=== PATIENT | male | born 2005 | race Caucasian/White ===

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

== ENCOUNTER 2025-05-09 10:40 | Emergency (ER) | payer SELFPAY ==
--- NOTE | ~2025-05-09 | XR_ITS ---
HISTORY: pain and swelling, trampoline injury COMPARISON: None TECHNIQUE: 3 views of the right ankle were performed FINDINGS: No acute fracture or dislocation. Significant anterolateral soft tissue swelling. The ankle mortise is preserved. Bone mineralization is age-appropriate. IMPRESSION: Anterolateral soft tissue swelling, without acute fracture. Reviewed, dictated and finalized at location A.
[2025-05-09 10:55] VITALS: BP 159/71; PULSE 91; RESP 20; TEMP 37.3; O2SAT 100
--- NOTE | 2025-05-09 11:08 | ED_ITS ---
HPI - Extremity Injury (Lower) General Chief Complaint: Extremity Injury, Lower Stated Complaint: Right Ankle Pain Time Seen by Provider: 05/09/25 11:08 Source: patient Mode of arrival: ambulatory Limitations: no limitations History of Present Illness HPI Narrative: 19-year-old male presents with complaint of pain to right ankle. Last night patient was jumping on trampoline, did a front flip and landed on both feet and then felt pain and pop to right ankle causing him to fall. Pain when bearing weight. States that right ankle feels stiff. Neurovascularly intact. Walking with a limp. All systems reviewed and negative except as noted above. Related Data Home Medications ?Medication ?Instructions ?Recorded ?Confirmed ?Last Taken ?Type No Home Medications 05/09/25 05/09/25 Unknown History Allergies Allergy/AdvReac Type Severity Reaction Status Date / Time No Known Allergies Allergy Mild Verified 05/09/25 11:19 Review of Systems Review of Systems: CONSTITUTIONAL: Denies fever, chills, or sweats. EYES: Denies visual changes, redness, or discharge. ENT: Denies rhinorrhea, congestion, sore throat, or otalgia. CARDIOVASCULAR: Denies chest pain, palpitations, or edema. RESPIRATORY: Denies cough or dyspnea. GASTROINTESTINAL: Denies abdominal pain, nausea, vomiting, or diarrhea. GENITOURINARY: Denies dysuria or hematuria. SKIN: Denies rash or itching. MUSCULOSKELETAL: Reports pain and swelling to right ankle NEUROLOGIC: Denies headache, numbness, or weakness. PSYCHIATRIC: Denies anxiety or depression. All other systems reviewed are negative, except as documented in HPI. [facility] Past Medical History Medical History BMI 34.0-34.9,adult Lactose intolerance Family History Family History Father COVID-19 Mother COVID-19 Sibling COVID-19 Other Breast cancer Diabetes mellitus Hypertension Social History Social History Smoking status: Never smoker Second hand tobacco smoke exposure: No Alcohol intake: never Substance use: never Substance use type: does not use Living arrangements: with family Occupation/Education: student Additional occupation/education comments: 11th grade [employer]. Works at [employer]. Gender identity (if verbalized by the patient): Male Comments At time of signature, agree with nursing past medical, surgical, social and family history. There is no relevant family history pertinent to the presenting complaint. Exam Narrative: GENERAL: This is a well-nourished, well-developed patient, in no apparent distress. HEAD: normocephalic, atraumatic. EYES: PERRL. Sclera clear/white. Vision is grossly intact. EARS: External ears normal NOSE: External nose normal NECK: Neck supple, non-tender without lymphadenopathy, masses or thyromegaly. CARDIOVASCULAR: Regular rate and rhythm without murmurs, gallops, or rubs. RESPIRATORY: Clear to auscultation. Breath sounds equal bilaterally. No wheezes, rales, or rhonchi. SKIN: warm, Dry, intact with no suspicious lesions or rash, good texture and turgor. NEURO: awake, alert, and oriented to person, place and time. There were no obvious focal neurologic abnormalities. EXTREMITIES: moderate amount of swelling to lateral aspect of right ankle with tenderness to anterior T FL and malleolus. No deformity noted. extension and flexion. Distal neurovascularly intact. Course Course Level of Care: Express Care Visit Vital Signs Vital signs: Vital Signs Temperature 37.3 C 05/09/25 10:55 Pulse Rate 91 05/09/25 10:55 Respiratory Rate 05/09/25 10:55 Blood Pressure 159/71 H 05/09/25 10:55 Pulse Oximetry 100 05/09/25 10:55 Oxygen Delivery Room Air 05/09/25 10:55 Temperature 37.3 C 05/09/25 10:55 Pulse Rate 91 05/09/25 10:55 Respiratory Rate 20 05/09/25 10:55 Blood Pressure 159/71 H 05/09/25 10:55 Pulse Oximetry 100 05/09/25 10:55 Oxygen Delivery Room Air 05/09/25 10:55 Reviewed MDM - Extremity Injury (Lower) MDM Narrative Medical decision making narrative: x-ray of right ankle negative for fracture. Patient placed in Jesus wrap to treat sprain. Recommend [id number] pain medications, rest, ice. Has crutches at home if he needs them. Will see his primary if pain is not improving. Differential Diagnosis Differential diagnosis: Likely ankle sprain and strain and ankle fracture Discharge Plan Discharge Clinical Impression: Right ankle sprain Qualifiers: Encounter type: initial encounter Involved ligament of ankle: unspecified ligament Qualified Code(s): S93.401A - Sprain of unspecified ligament of right ankle, initial encounter Patient Disposition: Home Condition: Stable Instructions: Ankle Sprain (ED) Additional Instructions: the x-ray of your right ankle was negative for fracture. Wear Jesus wrap to compress swelling. Elevate when at rest. Apply ice as needed for pain. Take ibuprofen or Tylenol every 6-8 hours as needed for pain. Wear a supportive tennis shoe. Avoid activities that increase pain such as running and jumping. Patient Language: Peruvian Prescriptions: No Action No Home Medications Follow-up/Referrals: Terence Schwab MD [Primary Care Provider] - Time of Disposition: 11:51
== END 2025-05-09 11:58 | disposition home or self-care (01) ==
PROVIDERS: Emergency Provider Nurse Practitioner Family; PCP Family Medicine
DX: S93.401A Sprain of unspecified ligament of right ankle, initial encounter (principal); W18.09XA Striking against other object with subsequent fall, initial encounter; Y93.44 Activity, trampolining
CPT/HCPCS: 73610; 99213; G0463

== ENCOUNTER 2025-06-05 11:29 | Emergency (ER) | payer OTHER, SELFPAY ==
[2025-06-05 11:37] VITALS: BP 154/79; PULSE 107; RESP 16; TEMP 36.8; O2SAT 100
--- NOTE | 2025-06-05 11:56 | ED.DENTAL ---
HPI - Dental/Oral General Chief complaint: Dental/Oral Stated complaint: Tooth / Dental Time Seen by Provider: 06/05/25 11:35 Source: patient and RN notes reviewed Mode of arrival: ambulatory Limitations: no limitations History of Present Illness HPI Narrative: 19-year-old male presents Express Care complaining of right lower dental pain for approximately 4 days. Patient said he had a wisdom tooth come in approximately 4 days ago reports increased redness, swelling, and pain to the right lower mouth. Patient reports having a hard time eating due to pain. Patient's dentist is closed today could not set up an appointment. Patient denies any difficulty swallowing, locked jaw, fevers, body aches, chills, difficulty breathing, or any other symptoms. Related Data Allergies Allergy/AdvReac Type Severity Reaction Status Date / Time No Known Allergies Allergy Mild Verified 06/05/25 11:34 Review of Systems Review of Systems: CONSTITUTIONAL: Denies fever, chills, or sweats. EYES: Denies visual changes, redness, or discharge. ENT: Denies rhinorrhea, congestion, sore throat, or otalgia. MOUTH: Positive for dental pain and swelling. CARDIOVASCULAR: Denies chest pain, palpitations, or edema. RESPIRATORY: Denies cough or dyspnea. GASTROINTESTINAL: Denies abdominal pain, nausea, vomiting, or diarrhea. GENITOURINARY: Denies dysuria or hematuria. SKIN: Denies rash or itching. MUSCULOSKELETAL: Denies back pain, joint pain, or myalgia. NEUROLOGIC: Denies headache, numbness, or weakness. PSYCHIATRIC: Denies anxiety or depression. All other systems reviewed are negative, except as documented in HPI. [facility] Past Medical History Medical History BMI 34.0-34.9,adult Lactose intolerance Family History Family History Father COVID-19 Mother COVID-19 Sibling COVID-19 Other Breast cancer Diabetes mellitus Hypertension Social History Social History Smoking status: Never smoker Second hand tobacco smoke exposure: No Alcohol intake: never Substance use: never Substance use type: does not use Living arrangements: with family Occupation/Education: student Additional occupation/education comments: 11th grade [employer]. Works at [employer]. Gender identity (if verbalized by the patient): Male Comments At the time of my signature, I reviewed and agree with the nursing past medical, surgical, social, and family history. There is no relevant family history pertinent to the patient complaint. Exam Narrative: GENERAL: This is a well-nourished, well-developed adult, in no apparent distress. They are non ill-appearing, nontoxic appearing. HEAD: normocephalic, atraumatic. EYES: Sclera clear/white. Conjunctiva normal. Vision is grossly intact. Extraocular movements intact EARS: External ears normal. Hearing grossly intact. NOSE: External nose normal THROAT: Mucous membranes moist, posterior pharynx clear, without erythema or swelling. Uvula midline. OROPHARYNX: Impacted wisdom tooth to right lower gum. Is erythematous, tender to palpate. No exudate, no area of fluctuance. Tooth plaque present. No missing teeth. No pain or swelling of the tongue. Tongue is normal. No trismus. NECK: Neck supple, non-tender without lymphadenopathy, masses or thyromegaly. CARDIOVASCULAR: Regular rate and rhythm RESPIRATORY: Respiratory rate normal, respiratory effort nonlabored, no respiratory distress SKIN: warm, Dry, intact with no suspicious lesions or rash, good texture and turgor. NEURO: awake, alert, and oriented to person, place and time. There were no obvious focal neurologic abnormalities. EXTREMITIES: No joint tenderness, effusion, or edema noted. Course Course Emergency Course: Portions of this record may have been created with voice recognition software Level of Care: Express Care Visit Vital Signs Vital signs: Vital Signs Temperature 98.3 F 06/05/25 11:37 Pulse Rate 107 H 06/05/25 11:37 Respiratory Rate 16 06/05/25 11:37 Blood Pressure 154/79 H 06/05/25 11:37 Pulse Oximetry 100 06/05/25 11:37 Oxygen Delivery Room Air 06/05/25 11:37 Temperature 98.3 F 06/05/25 11:37 Pulse Rate 107 H 06/05/25 11:37 Respiratory Rate 16 06/05/25 11:37 Blood Pressure 154/79 H 06/05/25 11:37 Pulse Oximetry 100 06/05/25 11:37 Oxygen Delivery Room Air 06/05/25 11:37 Reviewed MDM - Dental/Oral MDM Narrative Medical decision making narrative: Patient has impacted wisdom tooth to right lower gum. Given the matter redness and swelling and pain will prophylactically treat with Augmentin. Will prescribe viscous lidocaine as needed for pain. Advised patient to follow-up with dentist as soon as possible. Discussed physical exam findings. Advised supportive measures and signs/symptoms to go to the ER. Pt is appropriate for outpt treatment and f/u. Differential Diagnosis Differential diagnosis: Likely gingival abscess, dental caries, toothache, dental abscess, fracture of tooth and other (Impacted tooth) Critical Care Time Critical Care Time Critical Care Time: No Discharge Plan Discharge Clinical Impression: Impacted third molar tooth Patient Disposition: Home Condition: Stable Instructions: Antibiotic Form, Toothache (ED) Additional Instructions: Take the antibiotics as directed. You may alternate Tylenol and ibuprofen as needed for pain. Follow the instructions on the bottle. You may use viscous lidocaine as needed for pain in your mouth. Use a Q-tip and apply directly to the affected area. [place] your teeth and floss at least 2 times a day. You may use mouthwash after each brushing as well. Follow-up with dentist next week. If you developed worsening swelling, fevers, difficulty swallowing or breathing, difficulty opening her jaw, swelling under the tongue, or any other concerns please go to the ER immediately. Patient Language: Barbadian Prescriptions: New lidocaine HCl [Lidocaine Viscous] 2 % solution 1 applic mucous membrane TID PRN (Reason: pain) Qty: 100 0RF amoxicillin-pot clavulanate 875-125 mg tablet 1 tablet PO Q12H 7 Days Qty: 14 0RF Follow-up/Referrals: Terence Schwab MD [Primary Care Provider] - Time of Disposition: 11:50
== END 2025-06-05 12:00 | disposition home or self-care (01) ==
PROVIDERS: PCP Family Medicine
DX: K01.1 Impacted teeth (principal)
CPT/HCPCS: 99213; G0463